=== PATIENT | female | born 1995 | race American Indian/Alaskan Native ===

== ENCOUNTER 2021-12-21 15:23 | Emergency (ER) | payer BC ==
--- NOTE | 2021-12-21 20:04 | Emergency Department Report ---
ED General Adult HPI - General Chief complaint: Chest Pain Stated complaint: CHEST Source: EMS Mode of arrival: Stretcher Limitations: No Limitations - History of Present Illness Initial comments: 26-year-old female presents with chest pain x3 months by EMS. 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 Patient states that at current present time that chest pain is a 2 out of 10. Patient is very emotional and crying in examination room. She states that she is unable to sleep at night. Patient denies any shortness of breath nausea or vomiting. Patient is alert and oriented x4. Severity scale (0 -10): 1 Associated Symptoms: denies other symptoms Treatments Prior to Arrival: none - Related Data Allergies Allergy/AdvReac Type Severity Reaction Status Date / Time vancomycin Allergy Hives Verified 12/21/21 15:30 ED Review of Systems ROS: Stated complaint: CHEST Other details as noted in HPI Constitutional: denies: chills, fever Eyes: denies: eye pain, eye discharge, vision change ENT: denies: ear pain, throat pain Respiratory: denies: cough, shortness of breath, wheezing Cardiovascular: denies: chest pain, palpitations Endocrine: no symptoms reported Gastrointestinal: denies: abdominal pain, nausea, diarrhea Genitourinary: denies: urgency, dysuria, discharge Musculoskeletal: denies: back pain, joint swelling, arthralgia Skin: denies: rash, lesions Neurological: denies: headache, weakness, paresthesias Psychiatric: denies: anxiety, depression Hematological/Lymphatic: denies: easy bleeding, easy bruising ED Past Medical Hx - Past Medical History Previous Medical History?: No ED Physical Exam - General Limitations: No Limitations General appearance: alert, in no apparent distress - Head Head exam: Present: atraumatic, normocephalic - Eye Eye exam: Present: normal appearance - ENT ENT exam: Present: mucous membranes moist - Neck Neck exam: Present: normal inspection - Respiratory Respiratory exam: Present: normal lung sounds bilaterally. Absent: respiratory distress - Cardiovascular Cardiovascular Exam: Present: regular rate, normal rhythm. Absent: systolic murmur, diastolic murmur, rubs, gallop - GI/Abdominal GI/Abdominal exam: Present: soft, normal bowel sounds - Extremities Exam Extremities exam: Present: normal inspection - Back Exam Back exam: Present: normal inspection - Neurological Exam Neurological exam: Present: alert, oriented X3 - Psychiatric Psychiatric exam: Present: normal affect, normal mood - Skin Skin exam: Present: warm, dry, intact, normal color. Absent: rash ED Course Vital Signs 12/21/21 12/21/21 15:29 20:37 Temperature 98.3 F 98.2 F Pulse Rate 65 60 Respiratory 16 18 Rate Blood Pressure 133/88 128/70 [Right] O2 Sat by Pulse 100 100 Oximetry ED Medical Decision Making - Medical Decision Making 26-year-old female presents with chest pain x3 months by EMS. 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 Patient states that at current present time that chest pain is a 2 out of 10. Patient is very emotional and crying in examination room. She states that she is unable to sleep at night. Patient denies any shortness of breath nausea or vomiting. Patient is alert and oriented x4.Phyiscal eximination is unremakable . Rechecked the patient is resting quietly quietly and comfortable and feeling better. I discussed the results of diagnostic study, my clinical impression and the plan for further treatment with the patient. Patient agrees with plan and discharge at this present time. All question addressed. I have given the patient instruction regarding a diagnosis ,expectation ,follow- up and return precaution. I explained to the patient that emergent condition may arise and to return to the ED for new worsen and any new persisting condition. I have explained the importance of following up with the primary care physician or referral physician listed below has instructed. The patient verbalized understanding of discharge instruction. - Differential Diagnosis chest pain ,anxiety ,chest wall tenderness Critical care attestation.: If time is entered above; I have spent that time in minutes in the direct care of this critically ill patient, excluding procedure time. ED Disposition Clinical Impression: Anxiety Chest pain Qualifiers: Chest pain type: unspecified Qualified Code(s): R07.9 - Chest pain, unspecified Disposition: 01 HOME / SELF CARE / HOMELESS Is pt being admited?: No Does the pt Need Aspirin: No Condition: Stable Instructions: Nonspecific Chest Pain, Adult, [id number], Managing Anxiety, Adult Additional Instructions: Try taking melatonin to help with sleep at night Return to the ED for any worsening or new symptoms Referrals: SIDNEY RAND MD [Staff Physician] - 3-5 Days SHANTA CHO MD [Staff Physician] - 3-5 Days Forms: Work/School Release Form(ED)
[2021-12-21 20:38] VITALS: BP 128/70
--- NOTE | 2021-12-22 09:03 | Electrocardiograph Report ---
[facility] Test Date: 2021-12-21 Test Time: 20:03:42 Pat Name: KENDRA OSULLIVAN Department: Room: Gender: F Customer Engagement Manager: ABRAHAM : 1995 Requested By: TONYA MICHAELS Order Number: [id number] Reading MD: Edis Tello Measurements Intervals [place] Rate: 59 P: 62 TX: 146 QRS: 47 QRSD: 93 T: 37 QT: 388 QTc: 384 Interpretive Statements Sinus bradycardia No previous ECG available for comparison Electronically Signed On 12-22-2021 9:03:26 EST by Edis Tello
== END 2021-12-21 20:38 | disposition home or self-care (01) ==
LOC: ED 15:23
DX: F41.9 Anxiety disorder, unspecified (principal); R07.9 Chest pain, unspecified; Z88.1 Allergy status to other antibiotic agents
CPT/HCPCS: 93005; 93010; 99283